=== PATIENT | female | born 1985 | race Caucasian/White ===

== ENCOUNTER 2018-10-24 21:57 | Observation (INO) | payer BC ==
[2018-10-17 16:37] VITALS: Ht 177.8 cm; Wt 107.0 kg
[~2018-10-24] VITALS: Ht 177.8 cm; Wt 107.0 kg
[~2018-10-24 21:57] MED LIST: ADVAIR; ALB17R INH; ALLE; FLU44R INH; MON10 PO; PREN-127 PO
[2018-10-24 22:28] VITALS: BP 140/91
[2018-10-24] MEDS ORDERED: OXYTOCIN 30 UNIT/NS 500 ML 500 ML IV PRN (23:18)
[2018-10-24] MEDS ORDERED: LR(*) 1000 ML BAG 1,000 ML IV SCH (23:18)
[2018-10-24] MEDS ORDERED: FAMOTIDINE(*) 20MG/50ML PREMIX 50 ML IVPB PRN ×2 (23:18→23:20)
[2018-10-24] MEDS ORDERED: FLUSH 10 ML SYR IVP PRN (23:20)
[2018-10-24] MEDS ORDERED: cefOXitin/DEX(*) 2GM/50ML PREM 50 ML IVPB PRN (23:20)
[2018-10-24] MEDS ORDERED: fentaNYL CITR 100 MCG/2 ML AMP IVP PRN (23:20)
[2018-10-24] MEDS ORDERED: CALCIUM CARBONATE 500 MG CHEW PO PRN (23:20)
[2018-10-24] MEDS ORDERED: METOCLOPRAMIDE 10 MG/2 ML SDV IVP PRN (23:20)
[2018-10-24] MEDS ORDERED: LIDOCAINE 1% LOCAL 300 MG/30ML INJ PRN (23:20)
[2018-10-25 00:47] LABS: PLATELET COUNT, AUTOMATED 301 K/uL (150-450)
== END 2018-10-25 06:57 | disposition home or self-care (01) ==
LOC: OB 21:57 → INTOOBSV 21:57
PROVIDERS: ADMIT Obstetrics & Gynecology; ATTEND Obstetrics & Gynecology
DX: O47.1 False labor at or after 37 completed weeks of gestation (principal); Z3A.39 39 weeks gestation of pregnancy
CPT/HCPCS: 59025; 85025; 86703; G0378; G0379; J7120

== ENCOUNTER 2018-10-30 22:48 | Outpatient (CLI) | payer BC ==
[2018-10-17 16:37] VITALS: BMI 33.9
[2018-10-30 22:58] VITALS: BP 138/70
== END 2018-10-30 23:42 | disposition home or self-care (01) ==
LOC: UNDOADMOB 22:48 → OB 22:48 → INTOOBSV 22:48 → L&D 22:48 → UNDODISOB 23:42 → EDSTATUS 10-31 16:10
PROVIDERS: ATTEND Obstetrics & Gynecology
DX: O47.1 False labor at or after 37 completed weeks of gestation (principal); Z3A.39 39 weeks gestation of pregnancy
CPT/HCPCS: 59025; 99213

== ENCOUNTER 2018-11-04 11:21 | Inpatient (IN) | payer BC ==
[~2018-11-04] VITALS: Ht 176.5 cm; Wt 108.0 kg
[2018-11-04] MEDS ORDERED: LR(*) 1000 ML BAG 1,000 ML IV PRN (11:58)
[2018-11-04] MEDS ORDERED: OXYTOCIN 30 UNIT/NS 500 ML 500 ML IV PRN ×2 (11:58→12:15)
[2018-11-04] MEDS ORDERED: DLR(*) 1000 ML BAG 1,000 ML IV PRN (11:58)
[2018-11-04] MEDS ORDERED: fentaNYL CITR 100 MCG/2 ML AMP IVP PRN ×2 (12:00→12:15)
[2018-11-04] MEDS ORDERED: LIDOCAINE 1% LOCAL 300 MG/30ML INJ PRN ×2 (12:00→12:15)
[2018-11-04] MEDS ORDERED: FLUSH 10 ML SYR IVP PRN (12:00)
[2018-11-04] MEDS ORDERED: FAMOTIDINE(*) 20MG/50ML PREMIX 50 ML IVPB PRN (12:15)
[2018-11-04] MEDS ORDERED: TERBUTALINE SULF 1 MG/ML VIAL SUBQ PRN (12:15)
[2018-11-04] MEDS ORDERED: METOCLOPRAMIDE 10 MG/2 ML SDV IVP PRN (12:15)
[2018-11-04] MEDS ORDERED: cefOXitin/DEX(*) 2GM/50ML PREM 50 ML IVPB PRN (12:15)
[2018-11-04 12:17] LABS: PLATELET COUNT, AUTOMATED 264 K/uL (150-450)
[2018-11-04 12:24] VITALS: BP 144/82; Ht 176.5 cm; Wt 108.0 kg
--- NOTE | 2018-11-04 13:10 | Anesthesia OB Pre-Anes Eval ---
History of Present Illness Anesthesia Start Date: November 04, 2018 Anesthesia Start Time: 12:56 OB Anesthesia Diagnosis: induction - elective Complications: None known EDC: October 31, 2018 : 2 Para: 1 Vital Signs: Vital Signs Date Time Temp Pulse Resp B/P (MAP) Pulse Ox O2 Delivery O2 Flow Rate FiO2 11/04/18 12:24 98.3 114 20 144/82 (102) Pain Ratin Heart Tones: 140 Result Diagram: 11/04/18 1209 Height (Inches): 69.50 Weight (Pounds): 238 BMI (kg/m2): 34 (BMI 31 pre ) Past Medical History Medical History: obesity, asthma Surgical History: cholecystectomy (Nausea annd slow emergence) Attended Childbirth Classes?: No Hx Anesthesia Reactions: Yes (Nausea and slow emergence ) Hx Family Anesthesia Reaction: No Current Medications: pitocin Home Meds Reported Medications Vits W-Ca,Fe,Fa(<1MG) ( VITAMINS) 1 Each Tablet, 1 EACH PO DAILY, TAB 10/17/18 Fluticasone Prop 44 Mcg (FLOVENT HFA 44 MCG) 44 Mcg Inha, 44 MCG INH, INH 10/17/18 Albuterol (Proventil Inhaler) 17 Gm Inh, 0 INH, 0 Refills 1-2 PUFFS 03/31/08 Allergies: Coded Allergies: latex (Verified Allergy, Mild, 03/31/08) cefaclor (Verified Allergy, Unknown, , 03/31/08) Anesthesia OB ROS Neurological: No migraines/headaches, No seizures, No neuropathy, No other Eyes ROS: contacts out ENT: Other (Permanent retainer lower incisors.) Pulmonary: asthma Airway Class: ll Cardiovascular ROS: No edema, No arrhythmia, No other GI ROS: clear liquids Last Solids Date: November 04, 2018 Last Solids Time: 09:00 ROS: No Herpes, No STD(s), No Liver Disease, No Renal Disease, No Other Endocrine ROS: No diabetes, No gestational diabetes, No thyroid disorder, No other Musculoskeletal ROS: No low back pain, No low back injury, No scoliosis, No other ASA Classification: 2 Assessment and Plan Assessment: Patient and Kiran, plan natural childbirth. This interview was simply to assess risk factors, substance abuse counselor on anesthesia options and risks for emergency or pain interventions. Assessment 6 cm on pitocin augmentation. Pleasant female with supportive family. Proceding with natural childbirth plan. XIN JULIAN FLOUR DISTRIBUTOR November 04, 2018 13:10
--- NOTE | 2018-11-04 13:35 | History & Physical ---
History of Present Illness Age of Patient: 33 : 2 Para or TPAL: 1 EDC per LMP: October 31, 2018 Estimated Gestational Age: 40 Chief Complaint Labor History of Present Illness Presented to clinic today with advanced cervical dilation and irregular contractions. Assessed at 6 cm, vtx and sent in for augmentation and delivery. has been uncomplicated only after low lying placenta confirmed to be not an issue. She has asthma and has been on Flovent inhaler and rescue inhaler. Past Medical, Surgical, Family and Obstetric Histories reviewed. Please see ACOG chart. History Allergies: Coded Allergies: latex (Verified Allergy, Mild, 03/31/08) cefaclor (Verified Allergy, Unknown, , 03/31/08) Med Rec Home Meds Reported Medications Vits W-Ca,Fe,Fa(<1MG) ( VITAMINS) 1 Each Tablet, 1 EACH PO DAILY, TAB 10/17/18 Fluticasone Prop 44 Mcg (FLOVENT HFA 44 MCG) 44 Mcg Inha, 44 MCG INH, INH 10/17/18 Albuterol (Proventil Inhaler) 17 Gm Inh, 0 INH, 0 Refills 1-2 PUFFS 03/31/08 Review of Systems All Systems Reviewed/Normal: Yes, Except as Noted Exam General Exam Vital Signs Vital Signs Date Time Temp Pulse Resp B/P (MAP) Pulse Ox O2 Delivery O2 Flow Rate FiO2 11/04/18 12:24 98.3 114 20 144/82 (102) General Apperance: Alert/Awake/No Acute Distress Neuro: No Gross deficits Cardiovascular: Regular Rate and Rhythm Respiratory: No Respiratory Distress, Clear to Auscultation Abdomen: Soft, Non-Tender, Non-Distended, Gravid - Non-Tender Integumentary: Skin Intact without Lesions or Rash Psychological: Alert & Oriented X3, Appropriate Mood & Affect Vaginal Discharge/Fluid?: Bloody Show Cervical Dialation: 6 Cervical Effacement (%): 100 Cervical Consistency: Soft Cervical Position: Anterior Station: -1 Presentation: Vertex Fetus Heart Tone Variabilty: Moderate FHT Accelerations: 15X15 FHT Category: I Medical Decision Making Data Points Result Diagram: 11/04/18 1209 VTE Prophylasis: Adult Deep Vein Thrombosis/Pulmonary: No Pharmacological Contraindicati: Pt at Low Risk for VTE Mechanical Contraindications: Pt at Low Risk for VTE Assessment and Plan 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 Light meconium noted on AROM. Will have PEDs here for delivery. STAN YADAV MD November 04, 2018 13:35
[2018-11-04] MEDS ORDERED: ACETAMINOPHEN 325 MG TAB PO PRN (14:40)
[2018-11-04] MEDS ORDERED: HYDROCORTISONE 2.5% CR 30GM TB PR PRN (14:40)
[2018-11-04] MEDS ORDERED: BENZOCAINE 20% 60 ML BTL TP PRN (14:40)
[2018-11-04] MEDS ORDERED: MAGNESIUM HYDROXIDE* 30ML UDCP PO PRN (14:40)
[2018-11-04] MEDS ORDERED: APAP/HYDROCODONE 325/5 TAB PO PRN (14:40)
[2018-11-04] MEDS ORDERED: LANOLIN OINT 7 GM TUBE TP PRN (14:40)
[2018-11-04] MEDS ORDERED: INFLUENZA VIRUS VAC 0.5ML SYR IM ONLY ONE (14:40)
[2018-11-04] MEDS ORDERED: GLYCERIN/WITCH HAZEL LEAF 1 PK TP PRN (14:40)
--- NOTE | 2018-11-04 15:18 | OB Delivery Note ---
Delivery Note Vaginal Delivery Type: Spont. Vaginal Delivery Delivery Date: November 04, 2018 Delivery Time: 14:59 Estimated Gestational Age(wks): 40.4 Infant Sex: Female [place] Apgars: 1 Minute (8), 5 Minute (9) Estimated Blood Loss: 100 Notes: Presented to clinic at 6 cm and sent for augmentation of labor. Pitocin augmentation to a max of 10mu/min used plus AROM with light meconium stained fluid noted. Progressed to 7 cm by 1354 and 9 by 1433 and was completely dilated at 1454. Began involuntary pushing and brought baby to in KERRI position. Perineum stabilized and delivered over intact perineum. Nuchal cord x 1 delivered through. Remainder of baby delivered without difficulty. Placenta delivered intact and spontaneous, no complications. Uterus massaged firm and bleeding light. Adult Probation Officer in Attendence: Yes Copies to: STAN YADAV MD ; STAN YADAV MD November 04, 2018 15:18
[2018-11-04] MEDS: IBUPROFEN 800 MG TAB PO SCH ×2 (15:52→23:04)
[2018-11-04 17:09] VITALS: BP 117/63
[2018-11-04 19:30] VITALS: BP 127/62
[2018-11-04] MEDS: DOCUSATE CALCIUM 240 MG CAP PO SCH (20:45)
[2018-11-04] MEDS ORDERED: METHYLERGONOVINE MAL 0.2MG TAB PO PRN (21:40)
[2018-11-04 23:00] VITALS: BP 133/69
[2018-11-05 03:00] VITALS: BP 115/64
[2018-11-05 07:15] VITALS: BP 105/73
[2018-11-05] MEDS: IBUPROFEN 800 MG TAB PO SCH ×2 (07:33→14:58)
[2018-11-05] MEDS: DOCUSATE CALCIUM 240 MG CAP PO SCH (07:33)
--- NOTE | 2018-11-05 09:11 | OB/GYN Progress Note ---
OB Subjective Progress Notes Subjective Feeling well. No problems or issues. Bleeding light and ambulating well. GI: NEG Nausea : Voiding Well Pain: Mild OB Objective Physical Exam Vital Signs Date Time Temp Pulse Resp B/P (MAP) Pulse Ox O2 Delivery O2 Flow Rate FiO2 11/05/18 07:15 98.2 76 18 105/73 (84) 89 Room Air l Intake and Output 11/05/18 07:00 Intake Total 2140 ml Balance 2140 ml Intake Oral 1240 ml IV Total 900 ml # Voids 3 General Appearance: Alert/Awake/No Acute Distress Neurological: No Gross deficits Cardiovascular: Normal Rhythm & Peripheral Pulses, Regular Rate and Rhythm Respiratory: No Respiratory Distress, Clear to Auscultation Abdomen: Soft, Non-Tender, Non-Distended, Fundus Firm, Non-Tender Integumentary: Skin Intact without Lesions or Rash Psychological: Alert & Oriented X3, Appropriate Mood & Affect Result Diagram: 11/05/18 0610 Assessment and Plan APPEALS NURSE Plan: Routine Post- Care, Discharge Home Today Problems: (1) 40 weeks gestation of (2) care and examination immediately after delivery Assessment & Plan: Reviewed discharge instructions. F/U at 6 weeks. Precautions reviewed. STAN YADAV MD November 05, 2018 09:11
[2018-11-05] MEDS ORDERED: IBUP800T37 PO (09:12)
--- NOTE | 2018-11-05 09:14 | OB/GYN Discharge Summary ---
Discharge Summary Reason for Hosp/Final Diag: (1) 40 weeks gestation of (2) care and examination immediately after delivery [place] Vital Signs Vital Signs Date Time Temp Pulse Resp B/P (MAP) Pulse Ox O2 Delivery O2 Flow Rate FiO2 11/05/18 07:15 98.2 76 18 105/73 (84) 89 Room Air Weight (Pounds): 238 Result Diagram: 11/05/18 0610 Condition: Improved Discharge: Home, Self Mcfp Meds Reported Medications Vits W-Ca,Fe,Fa(<1MG) ( VITAMINS) 1 Each Tablet, 1 EACH PO DAILY, TAB 10/17/18 Fluticasone Prop 44 Mcg (FLOVENT HFA 44 MCG) 44 Mcg Inha, 44 MCG INH, INH 10/17/18 Albuterol (Proventil Inhaler) 17 Gm Inh, 0 INH, 0 Refills 1-2 PUFFS 03/31/08 Follow up Referrals: DIRECTOR OF ENTERTAINMENT - In 6 Weeks @ [facility] with STAN SCHWARZ MD Follow up with: Dr. Schwarz [phone] Follow up in: 6 wks PP or PO Discharge Diet: As Tolerates Discharge Activity: As Tolerates, No Heavy Lifting x 6 wks, No Heavy Lifting > 10lb, Pelvic Rest Copies to: STAN SCHWARZ MD ; STAN SCHWARZ MD November 05, 2018 09:14
[2018-11-05 15:00] VITALS: BP 133/75
[2018-11-06] MEDS ORDERED: MEASLES,MUMP,RUBELLA VAC 0.5ML SUBQ ONE (14:40)
[2018-11-06] MEDS ORDERED: DIPHTH/TETANUS/ACEL. PERTUSSIS IM ONLY ONE (14:40)
== END 2018-11-05 18:45 | disposition home or self-care (01) | DRG 807 ==
LOC: OB 11:21
PROVIDERS: ADMIT Obstetrics & Gynecology; ATTEND Obstetrics & Gynecology
PROC: 10E0XZZ Delivery of Products of Conception, External Approach (ICD-10-PCS; principal; 2018-11-04)
PROC: 10907ZC Drainage of Amniotic Fluid, Therapeutic from Products of Conception, Via Natural or Artificial Opening (ICD-10-PCS; 2018-11-04)
DX: O77.0 Labor and delivery complicated by meconium in amniotic fluid (principal); Z37.0 Single live birth; O99.52 Diseases of the respiratory system complicating childbirth; O69.81X0 Labor and delivery complicated by cord around neck, without compression, not applicable or unspecified; J45.909 Unspecified asthma, uncomplicated; Z91.040 Latex allergy status; Z88.8 Allergy status to other drugs, medicaments and biological substances; Z3A.40 40 weeks gestation of pregnancy
CPT/HCPCS: 36415; 85025; 85027; 86850; 86900; 86901; J2590; J7120

== ENCOUNTER → 2019-01-06 | Outpatient (CLI) | payer BC ==
[2018-11-04 12:24] VITALS: BMI 34.6
[~2019-01-06] MED LIST changes: +IBUP800T37 PO
--- NOTE | 2019-01-06 15:32 | RADIOLOGY IMAGING REPORT ---
FACILITY: [facility] PATIENT NAME: GABRIEL KHANNA : [id number] MR: [id number] V: [id number] EXAM DATE: ORDERING PHYSICIAN: STAN YADAV TECHNOLOGIST: Derrek Wynn RDMS, MESHA PROCEDURE:US RIGHT BREAST COMPARISON:None. INDICATIONS:Area of palpable concern and some pain in the medial aspect of the Right breast. The patient states that the finding is less palpable currently than it was previously. She is currently breast feeding. FINDINGS: Imaging of the area of concern indicated by the patient was done. Sonographic evaluation is unremarkable without discreet solid or cystic abnormality evident. No suspicious shadowing or architectural distortion. DIAGNOSTIC CATEGORY 1--NEGATIVE. RECOMMENDATIONS: CLINICAL EVALUATION. IMPRESSION: BIRADS 1: Negative. 1. Clinical follow-up of the area of concern in the medial aspect of the Right breast. 2. I discussed the exam findings with the patient at the completion of the Ultrasound Dr. Garcia. Dictated by: Abel Garcia on 01/06/2019 at 10:53 Transcribed by: QUITA on 01/06/2019 at 14:06 Approved by: Abel Garcia on 01/06/2019 at 15:28 [facility]
== END ==
LOC: US 00:45
PROVIDERS: ATTEND Obstetrics & Gynecology
DX: N63.21 Unspecified lump in the left breast, upper outer quadrant (principal)